=== PATIENT | male | born 1965 | race Two or more races ===

== ENCOUNTER 2017-11-17 08:56 | Day surgery (SDC) | payer OTHER ==
[~2017-11-17] VITALS: Ht 162.6 cm; Wt 88.5 kg
[~2017-11-17 08:56] MED LIST: ASPI81TA27 PO; ATOR20TA PO; LOSA25TA9 PO; METO25TA5 PO; NIT01P TD
[2017-11-17] MEDS ORDERED: fentaNYL CITRATE 100 MCG/2 ML VL ONE (10:41)
[2017-11-17] MEDS ORDERED: LIDOCAINE 2%HCL (LOCAL ANESTH.) INJ 20ML MDV ONE (10:41)
[2017-11-17] MEDS ORDERED: IOHEXOL 350 MG/ML 100ML IJ ONE (10:41)
[2017-11-17] MEDS ORDERED: MIDAZOLAM HCL 1MG/1ML-2 ML VIAL ONE (10:41)
== END 2017-11-17 13:30 | disposition home or self-care (01) ==
LOC: CATH 08:56
PROVIDERS: ATTEND Internal Medicine Cardiovascular Disease
DX: I42.9 Cardiomyopathy, unspecified (principal); I10 Essential (primary) hypertension; E78.5 Hyperlipidemia, unspecified; I25.2 Old myocardial infarction; F41.9 Anxiety disorder, unspecified; E66.9 Obesity, unspecified; Z68.33 Body mass index [BMI] 33.0-33.9, adult; Z79.899 Other long term (current) drug therapy
CPT/HCPCS: 93005; C1760; C1894; J2250; J3010; J7030; Q9967; 93454; 99152